=== PATIENT | female | born 1965 | race Two or more races ===

== ENCOUNTER → 2023-09-17 16:28 | Outpatient (REF) | payer BC, SELFPAY ==
[2023-09-17 17:44] LABS: % Basophils 0.7 % (0-2); % Eosinophils 2.8 % (0-6); % Immature Granulocytes 0.1 % (0-0.5); % Lymphocytes 45.1 % (20.5-51.1); % Monocytes 7.6 % (1.7-9.3); % Neutrophils 43.7 % (42.2-75.2); Absolute Basophils 0.1 10^3/uL (0-0.2); Absolute Eosinophils 0.2 10^3/uL (0-0.7); Absolute Lymphocytes 3.1 10^3/uL (1.2-3.4); Absolute Monocytes 0.5 10^3/uL (0.1-0.6); Hematocrit 38.8 % (37.0-47.0); Hemoglobin 12.9 g/dL (12.0-16.0); Mean Corp Hgb Conc. 33.2 g/dL (33.0-37.0); Mean Corpuscular Hgb 27.4 pg (27.0-31.0); Mean Corpuscular Volume 82.6 fL (81.0-99.0); Mean Platelet Volume 11.1 fL (7.4-10.4); Nucleated Red Blood Cells % 0 %; Platelet Count 324 10^3/uL (130-400); Red Cell Dist. Width 12.8 % (11.5-14.5); White Blood Cell Count 6.9 10^3/uL (4.8-10.8)
[2023-09-17 18:31] LABS: ALT (SGPT) 47 U/L (0-35); AST (SGOT) 47 U/L (14-36); Albumin 4.2 g/dl (3.5-5.0); Alkaline Phosphatase 86 U/L (38-126); Blood Urea Nitrogen 16 mg/dl (7-17); Calcium 9.3 mg/dl (8.4-10.2); Carbon Dioxide 31 mmol/L (22-30); Chloride 103 mmol/L (98-107); Direct Bilirubin 0.4 mg/dl (0.0-0.4); Glucose 74 mg/dl (70-99); HDL Cholesterol 43 mg/dl; LDL Cholesterol, Calculated 94 mg/dl; Sodium 139 mmol/L (135-145); Total Bilirubin 0.4 mg/dl (0.2-1.3); Total Cholesterol 155 mg/dl (50-199); Total Protein 7.3 g/dl (6.3-8.2); Triglyceride 91 mg/dl (10-149); Very Low Density Lipoprotein 18 mg/dl (0-30); eGFR > 60.00
[2023-09-17 18:47] LABS: Free T4 1.68 ng/dl (0.78-2.19); Vitamin D, 25-OH*** 55.9 ng/mL (30-80)
[2023-09-17 19:01] LABS: TSH 0.82 uIU/ml (0.47-4.68)
[2023-09-18 10:57] LABS: Glycohemoglobin (HgbA1c) 5.6 % (4.0-5.6)
== END ==
LOC: REG 16:28
PROVIDERS: ATTENDING PHYSICIAN Pediatrics
DX: Z00.00 Encounter for general adult medical examination without abnormal findings (principal)
CPT/HCPCS: 36415; 80053; 80061; 82248; 82306; 83036; 84439; 84443; 85025

== ENCOUNTER → 2024-06-09 09:36 | Outpatient (REF) | payer BC, SELFPAY ==
[2024-06-09 12:38] LABS: Glycohemoglobin (HgbA1c) 5.2 % (4.0-5.6)
[2024-06-09 12:43] LABS: % Basophils 1.1 % (0-2); % Eosinophils 2.3 % (0-6); % Immature Granulocytes 0.2 % (0-0.5); % Lymphocytes 45.5 % (20.5-51.1); % Monocytes 6.9 % (1.7-9.3); ALT (SGPT) 23 U/L (0-35); AST (SGOT) 28 U/L (14-36); Absolute Basophils 0.1 10^3/uL (0-0.2); Absolute Eosinophils 0.1 10^3/uL (0-0.7); Absolute Lymphocytes 2.5 10^3/uL (1.2-3.4); Absolute Monocytes 0.4 10^3/uL (0.1-0.6); Absolute Neutrophils 2.4 10^3/uL (1.4-6.5); Albumin 4.2 g/dl (3.5-5.0); Alkaline Phosphatase 70 U/L (38-126); Blood Urea Nitrogen 16 mg/dl (7-17); Calcium 9.4 mg/dl (8.4-10.2); Carbon Dioxide 30 mmol/L (22-30); Chloride 103 mmol/L (98-107); Direct Bilirubin 0.1 mg/dl (0.0-0.4); Glucose 78 mg/dl (70-99); HDL Cholesterol 60 mg/dl; Hematocrit 39.9 % (37.0-47.0); Hemoglobin 13.1 g/dL (12.0-16.0); LDL Cholesterol, Calculated 132 mg/dl; Mean Corp Hgb Conc. 32.8 g/dL (33.0-37.0); Mean Corpuscular Hgb 27.9 pg (27.0-31.0); Mean Corpuscular Volume 84.9 fL (81.0-99.0); Mean Platelet Volume 11.2 fL (7.4-10.4); Nucleated Red Blood Cells % 0 %; Platelet Count 283 10^3/uL (130-400); Potassium 4.8 mmol/L (3.5-5.1); Red Cell Dist. Width 12.7 % (11.5-14.5); Sodium 142 mmol/L (135-145); Total Bilirubin 0.3 mg/dl (0.2-1.3); Total Cholesterol 204 mg/dl (50-199); Triglyceride 60 mg/dl (10-149); Very Low Density Lipoprotein 12 mg/dl (0-30); White Blood Cell Count 5.5 10^3/uL (4.8-10.8); eGFR > 60.00
[2024-06-09 12:53] LABS: C-Reactive Protein < 5.00 mg/L (0.0-10.00)
[2024-06-09 13:10] LABS: Free T4 1.29 ng/dl (0.78-2.19); Vitamin D, 25-OH*** 40.7 ng/mL (30-80)
[2024-06-09 13:23] LABS: TSH 1.27 uIU/ml (0.47-4.68)
[2024-06-09 14:17] LABS: Vitamin B12 520 pg/ml (239-931)
[2024-06-10 23:15] LABS: Vitamin D 1,25 Dihydroxy 54.1 pg/mL (19.9-79.3)
== END ==
LOC: RAD 09:36
PROVIDERS: ATTENDING PHYSICIAN Pediatrics
DX: M85.80 Other specified disorders of bone density and structure, unspecified site (principal); Z78.0 Asymptomatic menopausal state
CPT/HCPCS: 36415; 80053; 80061; 80076; 82306; 82607; 82652; 83036; 84439; 84443; 85025; 86140

== ENCOUNTER → 2024-07-06 19:10 | Outpatient (REF) | payer BC, SELFPAY | LOC: WDC 19:10 | PROVIDERS: ATTENDING PHYSICIAN Obstetrics & Gynecology; FAMILY PHYSICIAN Pediatrics | DX: Z12.31 Encounter for screening mammogram for malignant neoplasm of breast (principal) | CPT/HCPCS: 77063; 77067 ==